=== PATIENT | male | born 1985 | race Caucasian/White ===

== ENCOUNTER 2023-12-12 09:42 | Emergency (ER) | payer BC, SELFPAY ==
[2023-12-12] VITALS (15 sets, daily range): BP systolic 126–148; BP diastolic 78–104; PULSE 78–165; TEMP 37; O2SAT 94–97; BMI 32.5
--- NOTE | 2023-12-12 10:08 | ECG_ITS ---
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
--- NOTE | 2023-12-12 10:09 | XR_ITS ---
The [address] [address] Patient Name: PARUL GEE MRN: [id number] date: 1985 Sex: M Assigned Patient Location: ER Current Patient Location: ER Accession/Order Number: [id number] Exam Date: 12/12/2023 10:19 Report Date: 12/12/2023 10:47 At the request of: DIANA SETHI Procedure: XR chest 1V EXAM: XR chest 1V INDICATION: afib. COMPARISON: None. TECHNIQUE: Single frontal view of the chest FINDINGS: Normal cardiomediastinal contours. No acute infiltrative process. No pleural effusion or pneumothorax. No acute osseous abnormality. XR/XR chest 1V IMPRESSION: No acute cardiopulmonary process. Electronically authenticated by: JAMES CHILD Date: 12/12/2023 10:47
[2023-12-12 10:17] LABS: Basophils Absolute Auto 0.1 10^3/uL (0.0-0.1); Basophils Percent Auto 0.8 % (0.2-2.0); Eosinophils Absolute Auto 0.4 10^3/uL (0.0-0.7); Eosinophils Percent Auto 4.1 % (0.9-7.0); Hematocrit 48.4 % (42.0-54.0); Hemoglobin 16.6 g/dL (14.0-18.0); Immature Granulocytes Abs Auto 0.02 10^3/uL (0.00-0.03); Immature Granulocytes Pct Auto 0.2 % (0.0-0.5); Lymphocytes Absolute Auto 2.2 10^3/uL (1.2-3.8); Lymphocytes Percent Auto 24.6 % (20.5-60.0); Mean Corpuscular HGB Conc 34.3 g/dL (29.9-35.2); Mean Corpuscular Hemoglobin 30.7 pg (25.9-34.0); Mean Corpuscular Volume 89.5 fL (80.0-94.0); Monocytes Absolute Auto 0.8 10^3/uL (0.3-0.8); Monocytes Percent Auto 9.3 % (1.7-12.0); Neutrophils Absolute Auto 5.5 10^3/uL (1.4-6.5); Platelet Count 209 10^3/uL (150-450); Red Blood Count 5.41 10^6/uL (4.70-6.10); Red Cell Distribution Width 12.6 % (11.0-15.0); White Blood Count 8.9 10^3/uL (4.0-11.0)
[2023-12-12] MEDS: 0.9 % SODIUM CHLORIDE 1,000 ML 1000 ML IV (10:25)
--- NOTE | 2023-12-12 10:25 | ED.GENADUL1 ---
HPI HPI - General Adult General Chief complaint: Chest Pain Stated complaint: IRREGULAR HEART RATE Time Seen by Provider: 12/12/23 10:04 Source: patient Mode of arrival: walk-in Limitations: no limitations History of Present Illness HPI narrative: The patient presented to the ER with few hours history of feeling that his heart racing, he denies any chest pain nausea vomiting or any other complaints. He admits that he was not drinking enough water yesterday and he also have 5 drinks of energy drinks daily. The patient is a smoker of less than 1 pack of cigarette daily. He have a family history of A-fib and his father. The patient denies any chest pain at any time denies any nausea vomiting fever chills coughing or any difficulty breathing Related Data Allergies Allergy/AdvReac Type Severity Reaction Status Date / Time No Known Drug Allergies Allergy Verified 12/12/23 10:06 Opioid HPI Opioid Management Most Recent Opioid Data: Last Pain Scale 0 12/12/23 10:14 Last ED Pain Assessment 12/12/23 10:14 Review of Systems ROS Status of ROS 10 or more systems reviewed and unremarkable except as noted in history and below Exam Narrative Exam Narrative: Nurses notes and vital signs reviewed and patient is not hypoxic. General: Well-appearing and in no apparent distress. Skin: Warm, dry, no pallor noted. No rash. Head: Normocephalic, atraumatic. Neck: Supple, non-tender. Eye: Pupils are equal, round and EOMI. No scleral icterus. Ears, Nose, Mouth, and Throat: TM are clear, no nasal mucosal hypertrophy. Oral mucosa is moist, no posterior oropharynx erythema, uvula is mid-line Cardiovascular: Rapid irregular heartbeat, gallop or rub. Respiratory: No accessory muscle use or respiratory distress. Lungs are clear to auscultation, no wheezing, rales or rhonchi Chest Wall: no tenderness Back: No midline thoracic or lumbar vertebral tenderness. No CVA tenderness Musculoskeletal: normal ROM, no calf or popliteal tenderness, no lower extremity edema/swelling GI: Abdomen is soft, non-distended. Normal bowel sounds. No masses appreciated. No tenderness to palpation. No rebound, guarding, or rigidity noted. Neurological: A&O x4. No cranial nerve dysfunction observed. No truncal ataxia. Moves all extremities. Sensation intact. Psychiatric: Cooperative and interactive. Normal mood and affect. Constitutional Vital Signs, click to edit/add: Last Vital Signs Temp 98.6 F 12/12/23 10:02 Pulse 91 H 12/12/23 10:30 Resp 21 H 12/12/23 10:30 BP 128/83 12/12/23 10:30 Pulse Ox 94 L 12/12/23 10:30 O2 Del Method Room Air 12/12/23 10:14 Course Vital Signs Vital signs: Vital Signs Pulse Rate 155 H 12/12/23 10:01 Respiratory Rate 17 12/12/23 10:01 Temperature 98.6 F 12/12/23 10:02 Pulse Rate 91 H 12/12/23 10:30 Respiratory Rate 21 H 12/12/23 10:30 Blood Pressure 128/83 12/12/23 10:30 Pulse Oximetry 94 L 12/12/23 10:30 Oxygen Delivery Method Room Air 12/12/23 10:14 Medical Decision Making MDM Narrative Medical decision making narrative: EKG showing A-fib with a heart rate of [address] elevation or depression Almost after half an hour the patient was back in sinus rhythm he had an EKG that was repeated that showing sinus rhythm with a heart rate of [address] elevation or depression The patient CBC chemistry as well as troponin and magnesium TSH all within normal Chest x-ray showed no acute pathology The patient is a 38-year-old no previous medical history he was advised and educated about smoking cessation as well as decreasing his energy drink intake as he is taking almost 4-5 Ensure drinks daily or that could be the trigger for his symptoms. Right now the patient will be discharged home with hydration as well as follow-up with cardiology as outpatient for further evaluation and echo done The patient instructed to come back in case of any other episode The patient is to follow up with primary care physician in next 2-3 days or to return to the emergency department should any of the signs or symptoms worsen or new symptoms develop. The patient agrees with the following Diagnosis and Treatment plan and the patient will be discharged home. Lab Data Labs: Lab Results 12/12/23 Range/Units 10:07 WBC 8.9 (4.0-11.0) 10^3/uL RBC 5.41 (4.70-6.10) 10^6/uL Hgb 16.6 (14.0-18.0) g/dL Hct 48.4 (42.0-54.0) % MCV 89.5 (80.0-94.0) fL MCH 30.7 (25.9-34.0) pg MCHC 34.3 (29.9-35.2) g/dL RDW 12.6 (11.0-15.0) % Plt Count 209 (150-450) 10^3/uL MPV 10.0 (9.5-13.5) fL Neut % (Auto) 61.0 (43.0-75.0) % Lymph % (Auto) 24.6 (20.5-60.0) % [place] % (Auto) 9.3 (1.7-12.0) % Eos % (Auto) 4.1 (0.9-7.0) % Baso % (Auto) 0.8 (0.2-2.0) % Neut # (Auto) 5.5 (1.4-6.5) 10^3/uL Lymph # (Auto) 2.2 (1.2-3.8) 10^3/uL [place] # (Auto) 0.8 (0.3-0.8) 10^3/uL Eos # (Auto) 0.4 (0.0-0.7) 10^3/uL Baso # (Auto) 0.1 (0.0-0.1) 10^3/uL Abs Immat Gran (auto) 0.02 (0.00-0.03) 10^3/uL Imm/Tot Granulo (auto) 0.2 (0.0-0.5) % PT 10.2 (9.0-11.6) sec INR 0.96 Sodium 142 (136-145) mmol/L Potassium 4.2 (3.5-5.1) mmol/L Chloride 106 (98-107) mmol/L Carbon Dioxide 27.3 (21.0-32.0) mmol/L Anion Gap 12.9 BUN 11.0 (7.0-18.0) mg/dL Creatinine 1.12 (0.70-1.30) mg/dL Est GFR ( Amer) >60 (>=60) Est GFR (Non-Af Amer) >60 (>=60) BUN/Creatinine Ratio 9.8 Glucose 107 H (74-106) mg/dL Calcium 9.3 (8.5-10.1) mg/dL Magnesium 2.1 (1.8-2.4) mg/dL Total Bilirubin 0.5 (0.2-1.0) mg/dL AST 21 (15-37) U/L ALT 49 (16-63) U/L Alkaline Phosphatase 72 (46-116) U/L Troponin I High Sens 5.3 (4.0-76.1) pg/mL Total Protein 6.7 (6.4-8.2) g/dL Albumin 3.5 (3.4-5.0) g/dL Globulin 3.2 g/dL Albumin/Globulin Ratio 1.1 TSH 0.968 (0.358-3.740) uIU/mL Discharge Plan Discharge Stand Alone Forms: Portal Instructions Chief Complaint: Chest Pain Clinical Impression: Paroxysmal A-fib Patient Disposition: Home, Self-Care Time of Disposition Decision: 11:04 Condition: Good Print Language: [place] Instructions: A-fib (Atrial Fibrillation) (ED) Referrals: Physician,Non-Staff, [Primary Care Provider] - 1 week BRENDEN MALCOLM [Physician] - 1 week
[2023-12-12 10:38] LABS: INR 0.96; Prothrombin Time 10.2 sec (9.0-11.6)
--- NOTE | 2023-12-12 10:41 | ECG_ITS ---
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
[2023-12-12 10:45] LABS: Alanine Aminotransferase 49 U/L (16-63); Albumin Globulin Ratio 1.1; Albumin Level 3.5 g/dL (3.4-5.0); Alkaline Phosphatase 72 U/L (46-116); Anion Gap 12.9; Aspartate Amino Transferase 21 U/L (15-37); BUN Creatinine Ratio 9.8; Bilirubin Total 0.5 mg/dL (0.2-1.0); Calcium 9.3 mg/dL (8.5-10.1); Carbon Dioxide 27.3 mmol/L (21.0-32.0); Chloride 106 mmol/L (98-107); Estimated GFR (African America >60 (>=60); Estimated GFR (Non-African Ame >60 (>=60); Globulin 3.2 g/dL; Glucose 107 mg/dL (74-106); Magnesium 2.1 mg/dL (1.8-2.4); Potassium 4.2 mmol/L (3.5-5.1); Sodium 142 mmol/L (136-145); Thyroid Stimulating Hormone 0.968 uIU/mL (0.358-3.740); Total Protein 6.7 g/dL (6.4-8.2); Troponin I High Sensitivity 5.3 pg/mL (4.0-76.1)
== END 2023-12-12 11:20 | disposition home or self-care (01) ==
PROVIDERS: Emergency Provider Emergency Medicine
DX: I48.0 Paroxysmal atrial fibrillation (principal); F17.210 Nicotine dependence, cigarettes, uncomplicated
CPT/HCPCS: 36415; 71045; 80053; 80307; 83735; 84443; 84484; 85025; 85610; 93005; 99285